=== PATIENT | female | born 1940 ===

== ENCOUNTER 2018-12-25 11:26 | Emergency (ER) | payer OTHER ==
[~2018-12-25] VITALS: Ht 149.9 cm; Wt 59.0 kg
[2018-12-25] MEDS ORDERED: LISINOPRIL2.5 MG (12:40)
[2018-12-25] MEDS ORDERED: PRILOSEC10 MG (12:41)
[2018-12-25] MEDS ORDERED: TRAMADOL HCL50 MG (12:41)
[2018-12-25] MEDS ORDERED: SIMVASTATIN20 MG (12:41)
== END 2018-12-25 15:02 | disposition home or self-care (01) ==
LOC: ER 11:26
DX: S80.02XA Contusion of left knee, initial encounter (principal); S80.01XA Contusion of right knee, initial encounter; W10.9XXA Fall (on) (from) unspecified stairs and steps, initial encounter; Y93.89 Activity, other specified; Y92.89 Other specified places as the place of occurrence of the external cause; Y99.8 Other external cause status

== ENCOUNTER 2019-06-15 10:57 | Outpatient (CLI) | payer OTHER ==
[~2019-06-15 10:57] MED LIST: LISINOPRIL2.5 MG; PRILOSEC10 MG; SIMVASTATIN20 MG; TRAMADOL HCL50 MG
== END 2019-06-15 11:05 | disposition home or self-care (01) ==
LOC: LAB 10:57
DX: Z01.812 Encounter for preprocedural laboratory examination (principal)

== ENCOUNTER 2020-07-28 07:41 | Outpatient (CLI) | payer OTHER | END 2020-07-28 07:53 | disposition home or self-care (01) | LOC: MRI 07:41 → TOM 07:41 → MRI 07:53 | PROVIDERS: ATTEND Internal Medicine Cardiovascular Disease | DX: Z96.653 Presence of artificial knee joint, bilateral (principal); M25.562 Pain in left knee; M25.561 Pain in right knee ==

== ENCOUNTER 2020-07-28 10:17 | Outpatient (CLI) | payer OTHER | END 2020-07-28 10:31 | disposition home or self-care (01) | LOC: LAB 10:17 | DX: D50.8 Other iron deficiency anemias (principal); D55.0 Anemia due to glucose-6-phosphate dehydrogenase [G6PD] deficiency; N39.0 Urinary tract infection, site not specified ==

== ENCOUNTER 2020-07-28 10:30 | Outpatient (CLI) | payer OTHER | END 2020-07-28 10:48 | disposition home or self-care (01) | LOC: NUCLEAR 10:30 | PROVIDERS: ATTEND Internal Medicine Cardiovascular Disease | DX: I21.01 ST elevation (STEMI) myocardial infarction involving left main coronary artery (principal) | CPT/HCPCS: 78452; 93017; A9500; J1250 ==